=== PATIENT | male | born 1955 | race Caucasian/White ===

== ENCOUNTER 2025-04-03 06:30 | Emergency (ER) | payer OTHER, SELFPAY ==
[2025-04-03 06:44] VITALS: BP 159/92
--- NOTE | 2025-04-03 08:31 | ED.GENMED ---
History of Present Illness
General
Chief Complaint: Skin Problem
Source: patient
Exam Limitations: none
Time Seen by Provider: 04/03/25 08:24
Nursing documentation reviewed up to this point in time: agreed with
History of Present Illness
History of Present Illness:
69-year-old male pain behind his scrotum about a week ago similar in the past's improved spontaneously swelling has increased the past 1 to 2 days he has pain when he is walking no pain when he moves his bowels, no fever no nausea vomiting has CAD
no history of diabetes
Past History
Past History
ED Past Medical History: CAD, CHF, HTN, Hypercholesterolemia and [place]
ED Past Surgical History: Cardiac (CABG, stent) and Orthopedic (Lithotripsy X 2)
Social History
Tobacco: Former smoker
Alcohol: None
Drug: None
Personal:
Living: with family
Employment: Employed
Review of Systems
Review of Systems
All Other Systems: Not applicable
Constitutional: Denies fever, fatigue or chills
ABD/GI: Reports no symptoms
: Reports no symptoms
Skin: Reports other (Swelling behind the scrotum)
Phy Exam
Physical Exam
Physical Exam:
Physical Exam
General: no apparent distress, not acutely ill
Neck: No jaw
Heart: s1/s2 regular rate and rhythm, no murmur. equal radial pulses.
Lungs: no acute respiratory distress. clear bilaterally
, walnut size
Perirectal abscess 12:00
Neuro: alert and oriented. no focal neurological deficits
Skin: no rash
Psychiatric: well kept. interactive and cooperative
Extremities: no edema.
Course
Orders/Labs/Results
Orders:
Orders
04/03/25 08:33
Bedside Glucose- Treatment ONCE
Vital Signs
Initial and Last Documented VS:
Initial Vital Signs
Temp Pulse Resp BP Pulse Ox
98.4 F 73 16 159/92 96
04/03/25 06:44 04/03/25 06:44 04/03/25 06:44 04/03/25 06:44 04/03/25 06:44
Last Documented Vital Signs
Temp Pulse Resp BP Pulse Ox
97.9 F 61 20 158/72 97
04/03/25 08:55 04/03/25 08:55 04/03/25 08:55 04/03/25 08:55 04/03/25 08:55
Procedures
Incision/Drainage/Joint Aspiration
Perirectal abscess:
Anethesia: 1% Lidocaine with Epi and other (Marcaine)
Preparation: cleaned with Betadine
Type of procedure: drain
Nature of site: abscess
Description of abscess: greater than 3cm
Loculations broken up: Yes
How much fluid was obtained?: large amount
Fluid description: foul smelling
Treatment: packed with gauze
Additional information:
Verbal consent timeout local anesthetic lidocaine and Marcaine, #11 blade large amount of malodorous pus
MDM/Problems Addressed
Differential Diagnosis Includes:
Perirectal abscess rectal abscess scrotal abscess
MDM/Problems Addressed:
Swelling
Chronic conditions affecting care: CAD
Acute Exacerbation and/or Progression of Chronic Illness: CAD
*Pulse Oximetry
SaO2: 96
Oxygen Mode of Delivery: Room air
Patient hypoxic: no
*Critical Care Note
Total Time (30-74mins, 75-104mins- exclusive of procedures): Not Applicable
Update Note
Update Note:
Looks like a fairly large perirectal abscess no systemic symptoms will check Accu-Chek provide incision and drainage
ED Attending Note
-
Portions of this chart may have been created with voice recognition software.� Occasional wrong word or��sound alike� substitutions may have occurred due to the inherent limitations of voice recognition software.
Discharge Plan
Departure
Patient Disposition: Home (Routine Discharge)
Date of Disposition: 04/03/25
Time of Disposition: 08:45
Patient with high blood pressure during this ER visit?: No
Condition: Good
Discharge Problem:
Carol-rectal abscess
Instructions: Anal abscess and fistula, How to take a sitz bath, Skin Abscess
Prescriptions:
New
ibuprofen 600 mg tablet
600 mg PO Q8H PRN (Reason: Pain) Qty: 20 0RF
oxycodone-acetaminophen [Percocet] 5-325 mg tablet
1 tab PO Q6HPRN PRN (Reason: pain) Qty: 10 0RF
oxycodone-acetaminophen [Percocet] 5-325 mg tablet
1 tab PO Q4HPRN PRN (Reason: pain) Qty: 10 0RF
No Action
aspirin 81 MG tablet,delayed release (DR/EC)
81 mg PO DAILY
omega 5-flv-zlt-fish oil [Fish Oil] 1 EACH capsule
1 ea PO DAILY
metoprolol succinate 25 MG tablet extended release 24 hr
75 mg PO HS
rosuvastatin 40 MG tablet
40 mg PO QPM
cefdinir 300 MG capsule
300 mg PO Q12 9 Days Qty: 19 0RF
ibuprofen 800 MG tablet
800 mg PO TIDPRN PRN (Reason: pain) Qty: 30 0RF
ascorbic acid (vitamin C) [Vitamin C] 500 MG tablet
1 tab PO DAILY
lisinopril 5 MG tablet
5 mg PO DAILY
Probiotic
1 cap PO DAILY
Vitamin D
1 cap PO DAILY
Referrals:
Luis Alfredo Bowen MD [Active, [facility]] - Next open appointment
Stand Alone Forms: Return to Work
Activity Restrictions/Additional Instructions:
Remove the packing in 2 days, if it falls out earlier it is okay
Sit in the bathtub few times a day
Interventions
Interventions:
*Risk Screen - Suicide Last Done: 04/03/25 06:44
*General Assessment Last Done: 04/03/25 08:33
*Neglect/Abuse Screening Last Done: 04/03/25 08:33
*ED- Fall Risk Assessment Last Done: 04/03/25 08:33
*ED COVID-19 Vaccine History Last Done: 04/03/25 08:33
*Nursing Disposition Last Done: 04/03/25 08:55
ED-Skin Assessment Last Done: 04/03/25 08:33
Discharge Date and Time
Discharge Date/Time: 04/03/25 08:45
Print Language: PERUVIAN
[2025-04-03 08:32] VITALS: BMI 23.8
[2025-04-03 08:44] LABS: Glucose - Point of Care 91 mg/dl (70-99)
[2025-04-03 08:55] VITALS: BP 158/72
== END 2025-04-03 08:45 | disposition home or self-care (01) ==
LOC: EMR 06:30
PROVIDERS: EMERGENCY PHYSICIAN Emergency Medicine
DX: K61.1 Rectal abscess (principal); E78.00 Pure hypercholesterolemia, unspecified; I11.0 Hypertensive heart disease with heart failure; I50.9 Heart failure, unspecified; I25.10 Atherosclerotic heart disease of native coronary artery without angina pectoris; Z87.891 Personal history of nicotine dependence; Z95.1 Presence of aortocoronary bypass graft; Z95.5 Presence of coronary angioplasty implant and graft
CPT/HCPCS: 46040; 99283; 82962